=== PATIENT | female | born 1950 | race Caucasian/White ===

== ENCOUNTER 2023-01-23 13:08 | Emergency (ER) | payer BC, MEDICARE ==
[~2023-01-23] VITALS: Ht 165.1 cm; Wt 71.0 kg
[~2023-01-23 13:08] MED LIST: ALPR-304 PO; CHOL100010 PO; DULO20CA50; LOP25T PO; MELA1TAB25 SL; MULT-1085 PO; [UNRECOGNIZED DRUG - CODE] PO
[2023-01-23 13:38] LABS: BASOPHILS # (AUTO) 0.1 X10'3 (0-0.2); BASOPHILS % (AUTO) 1.2 % (0-1); EOSINOPHILS # (AUTO) 0.3 X10'3 (0-0.9); HEMATOCRIT 40.7 % (35.0-45.0); LYMPHOCYTES # (AUTO) 1.7 X10'3 (1.1-4.8); LYMPHOCYTES % (AUTO) 26.3 % (21-51); MEAN CORPUSCULAR HEMOGLOBIN 31.8 PG (27.0-31.0); MEAN CORPUSCULAR HGB CONC 34.3 g/dL (33.0-36.5); MEAN CORPUSCULAR VOLUME 92.5 FL (78-98); MEAN PLATELET VOLUME 7.8 FL (7.4-10.4); MONOCYTES # (AUTO) 0.6 X10'3 (0-0.9); MONOCYTES % (AUTO) 8.4 % (2-12); NEUTROPHILS % (AUTO) 60.1 % (42-75); PLATELET COUNT 274 X10'3 (140-440); RED CELL DISTRIBUTION WIDTH 12.5 % (11.5-14.5); WHITE BLOOD COUNT 6.6 X10'3 (4.5-11.0)
[2023-01-23 13:49] LABS: ALANINE AMINOTRANSFERASE 28 U/L (12-78); ALBUMIN/GLOBULIN RATIO 1.3 (1.1-1.5); ALKALINE PHOSPHATASE 54 IU/L (46-116); ANION GAP 7 (8-16); ASPARTATE AMINO TRANSFERASE 20 U/L (10-37); BILIRUBIN,TOTAL 0.5 MG/DL (0.1-1.0); BLOOD UREA NITROGEN 19 MG/DL (7-18); BUN/CREATININE RATIO 22.1 (10.0-20.0); CALCIUM 9.1 MG/DL (8.5-10.1); CHLORIDE 106 MMOL/L (99-107); CREATININE 0.86 MG/DL (0.40-0.90); GLUCOSE 96 MG/DL (70-104); POTASSIUM 4.3 MMOL/L (3.5-5.1); SODIUM 139 MMOL/L (135-145); TOTAL PROTEIN 7.2 G/DL (6.4-8.2); eGFR 65 ML/MIN
[2023-01-23 14:36] LABS: PRO BRAIN NATRIURETIC PEPTIDE 129 PG/ML (0-125)
[2023-01-23 21:11] VITALS: TEMP 97.2
[2023-01-23] MEDS ORDERED: meclizine 12.5mg tablet PO ONE (23:15)
[2023-01-23] MEDS ORDERED: ondansetron 4mg rapidly disintigrating tab PO ONE (23:15)
[2023-01-24] MEDS ORDERED: MECL-226 PO ×3 (00:16→00:26)
[2023-01-24] MEDS ORDERED: ONDA4TAB12 PO ×3 (00:16→00:26)
[2023-01-24 00:30] VITALS: BP 178/89; PULSE 89; RESP 16; O2SAT 96
== END 2023-01-24 01:05 | disposition home or self-care (01) ==
LOC: ER 13:08
DX: R42 Dizziness and giddiness (principal)
CPT/HCPCS: 36415; 70450; 71045; 80053; 82948; 83880; 84484; 85025; 93005; 99285; J8597